=== PATIENT | female | born 1970 | race Caucasian/White ===

== ENCOUNTER 2016-11-29 17:47 | Emergency (ER) | payer MEDICAID ==
[2016-07-21 10:28] VITALS: BMI 36.7
[~2016-11-29 17:47] MED LIST: ACYCLOVIR15 GM TOPICAL; BENZONATATE200 MG PO; BUPRENORPHIN-N1 EACH SL; DOXYCYCLINE HY100 M2 PO; FAMVIR500 MG PO; FLORAJEN3 CAPS460 MG PO; IPRAT-ALBUT 0.5-3 ML INH; LEVAQUIN750 MG PO; MUCINEX DM ER1 EAC1 PO; NICODERM C1 PATCH .2 TRANSDERM; PREDNISONE20 MG PO; SINGULAIR10 MG PO; TESSALON PERLE100 MG PO
== END 2016-11-29 19:20 | disposition left against medical advice (07) ==
LOC: D.ER 17:47
DX: K13.79 Other lesions of oral mucosa (principal)

== ENCOUNTER 2016-12-02 16:41 | Emergency (ER) | payer MEDICAID ==
[2016-07-21 10:28] VITALS: BMI 36.7
== END 2016-12-02 19:00 | disposition home or self-care (01) ==
LOC: D.ER 16:41
DX: B00.1 Herpesviral vesicular dermatitis (principal); F17.200 Nicotine dependence, unspecified, uncomplicated; I10 Essential (primary) hypertension

== ENCOUNTER 2017-11-21 16:17 | Emergency (ER) | payer MEDICAID ==
[2016-07-21 10:28] VITALS: BMI 36.7
== END 2017-11-21 19:00 | disposition home or self-care (01) ==
LOC: D.ER 16:17
DX: F19.939 Other psychoactive substance use, unspecified with withdrawal, unspecified (principal); F41.9 Anxiety disorder, unspecified; I10 Essential (primary) hypertension

== ENCOUNTER 2019-08-20 18:08 | Emergency (ER) | payer MEDICAID ==
[~2019-08-20] VITALS: Ht 175.3 cm; Wt 102.3 kg
[2019-08-20 18:13] VITALS: Ht 175.3 cm; Wt 102.3 kg
[2019-08-20 18:51] LABS: BASOPHILS 0.1 % (0-2); EOSINOPHILS 0.3 % (0-7); HEMATOCRIT 35.4 % (36.0-48.0); HEMOGLOBIN 11.1 g/dL (12-16); IMMATURE GRANULOCYTES 0.2 % (0-5); LYMPHOCYTES 16.3 % (15-50); MCH 31.6 pg (26.0-34.0); MCHC 31.4 g/dL (31.0-37.0); MCV 100.9 fL (80.0-100.0); MEAN PLATELET VOLUME 9.9 fL (7.4-10.4); NEUTROPHILS 78.1 % (40-80); RBC 3.51 10x6/uL (4.00-5.40); RDW 12.7 % (11.5-14.5); WBC 12.2 10x3/uL (4.8-10.8)
[2019-08-20 18:55] LABS: PLATELET COUNT 204 10x3/uL (130-400)
[2019-08-20 19:11] LABS: ALBUMIN 3.5 g/dL (3.4-5.0); ALKALINE PHOSPHATASE 88 U/L (46-116); ALT (SGPT) 23 U/L (10-68); BILIRUBIN - TOTAL 0.45 mg/dL (0.2-1.3); CALC OSMOLALITY 277 mosm/kg (275-300); CALCIUM 8.7 mg/dL (8.5-10.1); CHLORIDE - SERUM 103 mmol/L (98-107); CREATININE - SERUM 0.8 mg/dL (0.6-1.3); GLUCOSE 96 mg/dL (74-106); POTASSIUM - SERUM 3.9 mmol/L (3.5-5.1); PROTEIN - SERUM 7.2 g/dL (6.4-8.2); SODIUM 138 mmol/L (136-145); UREA NITROGEN 17 mg/dL (7-18); eGFR NON AFRICAN AMERICAN 81 mL/min (90-120)
[2019-08-20 19:16] LABS: TROPONIN-I < 0.017 ng/mL (0.000-0.060)
[2019-08-20] MEDS ORDERED: VIBRAMYCIN 100100 MG PO (20:19)
[2019-08-20] MEDS ORDERED: PROMETHAZINE W473 ML PO (20:19)
[2019-08-20] MEDS ORDERED: ALBUTEROL SULF8.5 GM INH (20:19)
[2019-08-20 20:48] VITALS: BP 149/82
== END 2019-08-20 20:48 | disposition home or self-care (01) ==
LOC: D.ER 18:08
PROVIDERS: Emergency Medicine
DX: J18.9 Pneumonia, unspecified organism (principal); F17.210 Nicotine dependence, cigarettes, uncomplicated; I10 Essential (primary) hypertension

== ENCOUNTER 2019-11-13 17:12 | Emergency (ER) | payer MEDICAID ==
[~2019-11-13] VITALS: Ht 175.3 cm; Wt 97.7 kg
[~2019-11-13 17:12] MED LIST changes: +ALBUTEROL SULF8.5 GM INH; +PROMETHAZINE W473 ML PO; +VIBRAMYCIN 100100 MG PO
[2019-11-13 17:16] VITALS: Ht 175.3 cm; Wt 97.7 kg
[2019-11-13] MEDS ORDERED: ALBUTEROL SULF8.5 GM INH (19:57)
[2019-11-13] MEDS ORDERED: PROMETH-CODEIN 65 ML PO (19:57)
[2019-11-13] MEDS ORDERED: LEVAQUIN750 MG PO (19:57)
[2019-11-13 21:09] VITALS: BP 140/72
== END 2019-11-13 21:12 | disposition home or self-care (01) ==
LOC: D.ER 17:12
DX: J18.9 Pneumonia, unspecified organism (principal); J06.9 Acute upper respiratory infection, unspecified; R05 Cough; R09.81 Nasal congestion; Z72.0 Tobacco use

== ENCOUNTER 2020-02-10 16:25 | Inpatient (IN) | payer MEDICAID ==
[~2020-02-10] VITALS: Ht 175.3 cm; Wt 97.7 kg
[~2020-02-10 16:25] MED LIST changes: +PROMETH-CODEIN 65 ML PO
[2020-02-10 16:35] VITALS: Ht 175.3 cm; Wt 97.7 kg
[2020-02-10 17:02] VITALS: BP 158/94
[2020-02-10 18:05] VITALS: BP 129/76
[2020-02-10 18:05] LABS: HEMATOCRIT 39.1 % (36.0-48.0); HEMOGLOBIN 12.4 g/dL (12-16); LYMPHOCYTES 12.9 % (15-50); MCH 30.1 pg (26.0-34.0); MCHC 31.7 g/dL (31.0-37.0); MCV 94.9 fL (80.0-100.0); MEAN PLATELET VOLUME 9.5 fL (7.4-10.4); NEUTROPHILS 81.1 % (40-80); PLATELET COUNT 200 10x3/uL (130-400); RBC 4.12 10x6/uL (4.00-5.40); RDW 13.2 % (11.5-14.5); WBC 9.8 10x3/uL (4.8-10.8)
[2020-02-10 18:19] LABS: CALC OSMOLALITY 276 mosm/kg (275-300); CARBON DIOXIDE 27.3 mmol/L (21.0-32.0); CHLORIDE - SERUM 101 mmol/L (98-107); CREATININE - SERUM 0.6 mg/dL (0.6-1.3); GLUCOSE 95 mg/dL (74-106); POTASSIUM - SERUM 4.1 mmol/L (3.5-5.1); SODIUM 138 mmol/L (136-145); UREA NITROGEN 15 mg/dL (7-18); eGFR NON AFRICAN AMERICAN > 90 mL/min (90-120)
[2020-02-10 18:46] LABS: ALBUMIN 3.4 g/dL (3.4-5.0); ALKALINE PHOSPHATASE 82 U/L (30-120); ALT (SGPT) 19 U/L (10-68); BILIRUBIN - TOTAL 0.51 mg/dL (0.2-1.3); CKMB 0.5 U/L (0.0-3.6); CREATINE KINASE 63 UL (21-215); PROTEIN - SERUM 7.7 g/dL (6.4-8.2)
[2020-02-10 18:49] LABS: TROPONIN-I < 0.017 ng/mL (0.000-0.060)
[2020-02-10 19:17] LABS: ANION GAP 13.4 mmol/L (8-16); CARBON DIOXIDE 26.7 mmol/L (21.0-32.0); POTASSIUM - SERUM 4.1 mmol/L (3.5-5.1)
--- NOTE | 2020-02-10 20:30 | NUR ---
PT FROM ER VIA STRETCHER, PT AAO X 3, RESP EVEN AND UNLBAORED. NO DISTRESS NOTED, PT AMBULATED TO BED, SR UP X 2, CL IN REACH.
[2020-02-10 20:46] VITALS: BP 132/72
[2020-02-10 23:29] VITALS: BP 130/72
[2020-02-11 00:35] LABS: BILIRUBIN NEGATIVE (NEGATIVE); GLUCOSE NEGATIVE (NEGATIVE); KETONE NEGATIVE (NEGATIVE); NITRITE NEGATIVE (NEGATIVE); UROBILINOGEN NORMAL (NORMAL)
[2020-02-11 00:37] LABS: BACTERIA MODERATE /hpf (NEGATIVE); EPITHELIAL CELLS 0-5 /hpf (0-5); RED CELLS - URINE 0-5 /hpf (0-5); WHITE CELLS - URINE 0-5 /hpf (NEGATIVE)
--- NOTE | 2020-02-11 04:49 | NUR ---
I have reviewed this patient and I concur with the Shift Assessment completed by the Licensed Practical Nurse today this shift.
[2020-02-11 06:08] LABS: ALBUMIN 3.1 g/dL (3.4-5.0); ALKALINE PHOSPHATASE 74 U/L (30-120); ALT (SGPT) 20 U/L (10-68); BILIRUBIN - TOTAL 0.37 mg/dL (0.2-1.3); CALC OSMOLALITY 279 mosm/kg (275-300); CALCIUM 8.5 mg/dL (8.5-10.1); CARBON DIOXIDE 26.7 mmol/L (21.0-32.0); CHLORIDE - SERUM 104 mmol/L (98-107); CREATININE - SERUM 0.5 mg/dL (0.6-1.3); GLUCOSE 95 mg/dL (74-106); MAGNESIUM - SERUM 2.3 mg/dL (1.8-2.4); PHOSPHOROUS 3.8 mg/dL (2.5-4.9); POTASSIUM - SERUM 3.7 mmol/L (3.5-5.1); PROTEIN - SERUM 6.6 g/dL (6.4-8.2); SODIUM 140 mmol/L (136-145); UREA NITROGEN 14 mg/dL (7-18); eGFR NON AFRICAN AMERICAN > 90 mL/min (90-120)
[2020-02-11 06:35] LABS: HEMATOCRIT 35.8 % (36.0-48.0); HEMOGLOBIN 11.5 g/dL (12-16); LYMPHOCYTES 27.1 % (15-50); MCH 30.8 pg (26.0-34.0); MCHC 32.1 g/dL (31.0-37.0); MEAN PLATELET VOLUME 10.3 fL (7.4-10.4); NEUTROPHILS 66.3 % (40-80); PLATELET COUNT 178 10x3/uL (130-400); RBC 3.73 10x6/uL (4.00-5.40)
[2020-02-11 06:41] LABS: WBC 6.3 10x3/uL (4.8-10.8)
[2020-02-11 09:47] VITALS: BP 141/79
--- NOTE | 2020-02-11 16:43 | MORECARE ---
CASE MANAGEMENT DISCHARGE SUMMARY PATIENT: CINTHYA MENG UNIT: [id number] ADM DATE: 02/10/20 AGE: 49 : 72 SEX: F ROOM/BED: D.2131 AUTHOR: JANICE,DOC PHYSICIAN: REFERRING PHYSICIAN: RADHA ELLER MD DATE OF SERVICE: 02/11/20 Discharge Plan Patient Name: CINTHYA MENG Facility: [facility]:[place] : 1970 Planned Disposition: Home Anticipated Discharge Date: Discharge Date: Expected LOS: Initial Reviewer: [email or web address] Initial Review Date: 02/11/2020 Generated: 02/11/20 5:43 pm Comments DCP- Discharge Planning Updated by [email or web address]: Mateus Braun on 02/11/20 3:[address] Patient Name: CINTHYA MENG Admission Status: ER Accout number: [id number] Admission Date: 02-10-2020 : 1970 Admission Diagnosis: Attending: RADHA ELLER Current LOS: 1 Anticipated DC Date: Planned Disposition: Home Primary Insurance: MEDICAID [place] Discharge Planning Comments: CM MET WITH PT VIA ROOM TELEPHONE DUE TO INFECTION CONTROL PROTOCOL TO DISCUSS DISCHARGE PLANNING AND NEEDS. PT REPORTS LIVING AT HOME INDEPENDENTLY WITH HER BROTHER AND DAUGHER IN LAW. PT HAS NO MEDICAL EQUIPMENT AND NO OUTSIDE SERVICES ASSISTING IN THE HOME. CM DISCUSSED AVAILABILITY OF HOME HEALTH, REHAB SERVICES AND MEDICAL EQUIPMENT. PT DENIES DISCHARGE NEEDS, REPORTS HER BROTHER WILL PICK HER UP FOR DISCHARGE HOME. CM TO FOLLOW AND ASSIST IF NEEDED. Head Setter: Mateus Braun DCPIA - Discharge Planning Initial Assessment Updated by [email or web address]: Mateus Braun on 02/11/20 4:38 pm * Is the patient Alert and Oriented? Yes * How many steps to enter\exit or inside your home? NONE * PCP [facility], CAN'T REMEMBER NAME, HAS NOT MADE FIRST VISIT TO ESTABLISH WITH THE DOCTOR YET * Pharm[facility] * Preadmission Environment Home with Family * ADLs Independent * Equipment None * Other Equipment NO MEDICAL EQUIPMENT PROVIDER PREFERENCE * List name and contact numbers for known caregivers / representatives who currently or will assist patient after discharge: LAI MENG, BROTHER, * Verbal permission to speak to the caregivers and representatives has been obtained from the patient. N/A * Community resources currently utilized None * Please name any agencies selected above. NONE * Additional services required to return to the preadmission environment? No * Can the patient safely return to the preadmission environment? Yes * Has this patient been hospitalized within the prior 30 days at any hospital? No Patient Name: CINTHYA MENG Page [id number] at 1643 All edits/amendments must be made on the electronic document DICTATION DATE: 02/11/201642 LOTUS NOTES ADMINISTRATOR: DEMETRIA 02/11/201642 RPT#: [id number] DC DATE: STATUS: ADM IN [facility] [address] [place] [address] END OF REPORT
[2020-02-11 19:08] VITALS: BP 135/73
--- NOTE | 2020-02-11 19:30 | NUR ---
PT IN BED, AAO X 3, RESP EVEN AND UNLABORED, NO DISTRESS NOTED, CL IN REACH, SR UP X 2.
[2020-02-12 04:49] LABS: BASOPHILS 0.2 % (0-2); EOSINOPHILS 1.7 % (0-7); HEMATOCRIT 36.1 % (36.0-48.0); HEMOGLOBIN 11.2 g/dL (12-16); LYMPHOCYTES 44.4 % (15-50); MCH 30.2 pg (26.0-34.0); MCV 97.3 fL (80.0-100.0); MEAN PLATELET VOLUME 9.8 fL (7.4-10.4); MONOCYTES 7.6 % (2-11); NEUTROPHILS 46.1 % (40-80); PLATELET COUNT 160 10x3/uL (130-400); RBC 3.71 10x6/uL (4.00-5.40); RDW 13.5 % (11.5-14.5)
[2020-02-12 05:02] LABS: WBC 4.1 10x3/uL (4.8-10.8)
[2020-02-12 05:17] LABS: CALCIUM 8.8 mg/dL (8.5-10.1); CARBON DIOXIDE 27.2 mmol/L (21.0-32.0); CHLORIDE - SERUM 107 mmol/L (98-107); GLUCOSE 95 mg/dL (74-106); MAGNESIUM - SERUM 2.2 mg/dL (1.8-2.4); POTASSIUM - SERUM 3.9 mmol/L (3.5-5.1); SODIUM 142 mmol/L (136-145)
[2020-02-12 05:18] LABS: CALC OSMOLALITY 284 mosm/kg (275-300); CREATININE - SERUM 0.7 mg/dL (0.6-1.3); PHOSPHOROUS 4.8 mg/dL (2.5-4.9); UREA NITROGEN 18 mg/dL (7-18); eGFR NON AFRICAN AMERICAN > 90 mL/min (90-120)
[2020-02-12 05:51] VITALS: BP 123/65
[2020-02-12] MEDS ORDERED: OMNICEF300 MG PO (12:12)
[2020-02-12] MEDS ORDERED: AZITHROMYCIN500 MG PO (12:12)
--- NOTE | 2020-02-16 09:14 | MORECARE ---
CASE MANAGEMENT DISCHARGE SUMMARY PATIENT: CINTHYA MENG UNIT: [id number] ADM DATE: 02/10/20 AGE: 49 : 72 SEX: F ROOM/BED: D.2131 AUTHOR: JANICE,DOC PHYSICIAN: REFERRING PHYSICIAN: RADHA ELLER MD DATE OF SERVICE: 02/16/20 Discharge Plan Patient Name: CINTHYA MENG Facility: [facility]:[place] : 1970 Planned Disposition: Home Anticipated Discharge Date: 02/12/20 Discharge Date: 02/12/2020 Expected LOS: 2 Initial Reviewer: [email or web address] Initial Review Date: 02/11/2020 Generated: 02/16/20 10:14 am Comments DCP- Discharge Planning Updated by [email or web address]: Mateus Braun on 02/11/20 3:[address] Patient Name: CINTHYA MENG Admission Status: ER Accout number: [id number] Admission Date: 02-10-2020 : 1970 Admission Diagnosis: Attending: RADHA ELLER Current LOS: 1 Anticipated DC Date: Planned Disposition: Home Primary Insurance: [place]ICAID [place] Discharge Planning Comments: CM MET WITH PT VIA ROOM TELEPHONE DUE TO INFECTION CONTROL PROTOCOL TO DISCUSS DISCHARGE PLANNING AND NEEDS. PT REPORTS LIVING AT HOME INDEPENDENTLY WITH HER BROTHER AND DAUGHER IN LAW. PT HAS NO MEDICAL EQUIPMENT AND NO OUTSIDE SERVICES ASSISTING IN THE HOME. CM DISCUSSED AVAILABILITY OF HOME HEALTH, REHAB SERVICES AND MEDICAL EQUIPMENT. PT DENIES DISCHARGE NEEDS, REPORTS HER BROTHER WILL PICK HER UP FOR DISCHARGE HOME. CM TO FOLLOW AND ASSIST IF NEEDED. Disc Jockey: Mateus Braun DCPIA - Discharge Planning Initial Assessment Updated by [email or web address]: Mateus Braun on 02/11/20 4:38 pm * Is the patient Alert and Oriented? Yes * How many steps to enter\exit or inside your home? NONE * PCP [facility], CAN'T REMEMBER NAME, HAS NOT MADE FIRST VISIT TO ESTABLISH WITH THE DOCTOR YET * Pharmacy [facility] * Preadmission Environment Home with Family * ADLs Independent * Equipment None * Other Equipment NO MEDICAL EQUIPMENT PROVIDER PREFERENCE * List name and contact numbers for known caregivers / representatives who currently or will assist patient after discharge: LAI MENG, BROTHER, * Verbal permission to speak to the caregivers and representatives has been obtained from the patient. N/A * Community resources currently utilized None * Please name any agencies selected above. NONE * Additional services required to return to the preadmission environment? No * Can the patient safely return to the preadmission environment? Yes * Has this patient been hospitalized within the prior 30 days at any hospital? No Last DP export: 02/11/20 3:43 p Patient Name: CINTHYA MENG Page 45642 at 0914 All edits/amendments must be made on the electronic document DICTATION DATE: 02/16/20913 SALES ATTENDANT: DEMETRIA 02/16/20913 RPT#: [id number] DC DATE:02/12/20 STATUS: DIS IN [facility] [address] [place] [address] END OF REPORT
== END 2020-02-12 14:56 | disposition home or self-care (01) | DRG 194 ==
LOC: D.ER 16:25 → D.M2 18:52
PROVIDERS: Family Medicine; ADMIT Internal Medicine Nephrology; ATTEND Internal Medicine Nephrology
DX: J18.9 Pneumonia, unspecified organism (principal); R04.2 Hemoptysis; F17.213 Nicotine dependence, cigarettes, with withdrawal; N17.9 Acute kidney failure, unspecified; I10 Essential (primary) hypertension; G89.29 Other chronic pain; D64.9 Anemia, unspecified; Z20.818 Contact with and (suspected) exposure to other bacterial communicable diseases

== ENCOUNTER 2021-01-30 10:34 | Emergency (ER) | payer OTHER ==
[~2021-01-30] VITALS: Ht 175.3 cm; Wt 95.5 kg
[~2021-01-30 10:34] MED LIST changes: +AZITHROMYCIN500 MG PO; +CLINDAMYCIN HC300 MG PO; +KEFLEX500 MG PO; +OMNICEF300 MG PO; +VALTREX1000 MG PO
[2021-01-30 10:43] VITALS: BP 158/89; Ht 175.3 cm; Wt 95.5 kg
[2021-01-30] MEDS ORDERED: CYCLOBENZAPRINE10 MG PO (11:14)
[2021-01-30] MEDS ORDERED: IBUPROFEN800 MG PO (11:14)
[2021-01-30] MEDS ORDERED: ACETAMINOPHEN500 M1 PO (11:14)
== END 2021-01-30 11:29 | disposition home or self-care (01) ==
LOC: D.ER 10:34
DX: T14.8XXA Other injury of unspecified body region, initial encounter (principal); S81.811A Laceration without foreign body, right lower leg, initial encounter; W20.8XXA Other cause of strike by thrown, projected or falling object, initial encounter; Y93.9 Activity, unspecified; Y92.9 Unspecified place or not applicable

== ENCOUNTER 2021-02-04 09:06 | Inpatient (IN) | payer OTHER ==
[~2021-02-04] VITALS: Ht 175.3 cm; Wt 106.6 kg
[2021-02-04] VITALS (8 sets, daily range): BP systolic 84–129; BP diastolic 52–87; Ht 175.3 cm; Wt 106.6 kg
[~2021-02-04 09:06] MED LIST changes: +ACETAMINOPHEN500 M1 PO; +CYCLOBENZAPRINE10 MG PO; +IBUPROFEN800 MG PO
--- NOTE | 2021-02-04 10:36 | NUR ---
PATIENT CAME IN EMERGENT DIRECTLY FROM ER ON STRETCHER. PATIENT AWAKE ALERT AND RESPONSIVE UPON ARRIVAL TO OR VERBALIZED PAIN IN RIGHT LEG. OPEN WOUND PRESENT ON RIGHT LOWER LEG BELOW SITE OF HEMORRHAGE. RIGHT GREATER TOE WOUND PRESENT AT CORNER OF TOENAIL. TOURNIQUET ALREADY PRESENT PLACED IN AMBULANCE. EMERGENCY PROTOCAL FOLLOWED FOR DISTRUBUTION OF BLOOD PRODUCTS. PATIENT CAME IN FULLY CLOTHED BLACK PANTS SHIRT BRA ONE SHOE AND A BELT. CLOTHES CUT OFF PRIOR TO PROCEDURE. DENTURES WERE REMOVED AND PLACED IN CUP PRIOR TO INTUBATION LEFT WITH PATIENT ON BED AFTER END OF PROCEDURE. LEFT RING FINGER RING PRESENT.
--- NOTE | 2021-02-04 10:47 | NUR ---
NO PAPER CONSENT PRESENT PATIENT BROUGHT EMERGENTLY FROM ER DIRECTLY TO OR. SEE ED RECORD
[2021-02-04 11:31] LABS: BASOPHILS 0.2 % (0-2); HEMATOCRIT 31.6 % (36.0-48.0); HEMOGLOBIN 10.2 g/dL (12-16); IMMATURE GRANULOCYTES 0.3 % (0-5); LYMPHOCYTE ABS# 2.35 10x3/uL (1.18-3.74); LYMPHOCYTES 13.8 % (15-50); MCH 29.9 pg (26.0-34.0); MCHC 32.3 g/dL (31.0-37.0); MCV 92.7 fL (80.0-100.0); MEAN PLATELET VOLUME 9.5 fL (7.4-10.4); MONOCYTES 4.2 % (2-11); NEUTROPHIL ABS# 13.56 10x3/uL (1.56-6.13); NEUTROPHILS 79.5 % (40-80); PLATELET COUNT 331 10x3/uL (130-400); RBC 3.41 10x6/uL (4.00-5.40); RDW 12.7 % (11.5-14.5); WBC 17.1 10x3/uL (4.8-10.8)
[2021-02-04 13:41] LABS: CALC OSMOLALITY 279 mosm/kg (275-300); CARBON DIOXIDE 29.4 mmol/L (21.0-32.0); CHLORIDE - SERUM 105 mmol/L (98-107); CREATININE - SERUM 0.8 mg/dL (0.6-1.3); GLUCOSE 110 mg/dL (74-106); INR 1.12 (0.85-1.17); POTASSIUM - SERUM 4.2 mmol/L (3.5-5.1); PROTIME 13.4 SECONDS (11.6-15.0); SODIUM 138 mmol/L (136-145); UREA NITROGEN 22 mg/dL (7-18); eGFR NON AFRICAN AMERICAN 81 mL/min (90-120)
[2021-02-04 13:47] LABS: ALBUMIN 3.3 g/dL (3.4-5.0); ALKALINE PHOSPHATASE 95 U/L (30-120); ALT (SGPT) 24 U/L (10-68); BILIRUBIN - TOTAL 0.27 mg/dL (0.2-1.3)
[2021-02-04 21:28] LABS: HEMATOCRIT 26.1 % (36.0-48.0); HEMOGLOBIN 8.5 g/dL (12-16)
[2021-02-05] VITALS (20 sets, daily range): BP systolic 87–168; BP diastolic 45–92
[2021-02-05 04:10] LABS: BASOPHILS 0.3 % (0-2); EOSINOPHILS 3.7 % (0-7); HEMATOCRIT 24.1 % (36.0-48.0); HEMOGLOBIN 7.7 g/dL (12-16); IMMATURE GRANULOCYTES 0.1 % (0-5); LYMPHOCYTE ABS# 2.78 10x3/uL (1.18-3.74); MCH 29.5 pg (26.0-34.0); MCV 92.3 fL (80.0-100.0); MEAN PLATELET VOLUME 8.9 fL (7.4-10.4); MONOCYTES 5.2 % (2-11); NEUTROPHIL ABS# 4.43 10x3/uL (1.56-6.13); NEUTROPHILS 55.7 % (40-80); RDW 13.1 % (11.5-14.5)
[2021-02-05 04:22] LABS: PLATELET COUNT 203 10x3/uL (130-400); RBC 2.61 10x6/uL (4.00-5.40); WBC 7.9 10x3/uL (4.8-10.8)
[2021-02-05 04:36] LABS: ALKALINE PHOSPHATASE 71 U/L (30-120); ALT (SGPT) 18 U/L (10-68); CALC OSMOLALITY 280 mosm/kg (275-300); CALCIUM 7.5 mg/dL (8.5-10.1); CARBON DIOXIDE 25.8 mmol/L (21.0-32.0); CHLORIDE - SERUM 108 mmol/L (98-107); CREATININE - SERUM 0.8 mg/dL (0.6-1.3); GLUCOSE 106 mg/dL (74-106); MAGNESIUM - SERUM 2.1 mg/dL (1.8-2.4); PHOSPHOROUS 3.4 mg/dL (2.5-4.9); POTASSIUM - SERUM 3.9 mmol/L (3.5-5.1); SODIUM 140 mmol/L (136-145); UREA NITROGEN 18 mg/dL (7-18); eGFR NON AFRICAN AMERICAN 81 mL/min (90-120)
[2021-02-05 04:42] LABS: ALBUMIN 2.4 g/dL (3.4-5.0); BILIRUBIN - TOTAL 0.06 mg/dL (0.2-1.3); PROTEIN - SERUM 5.1 g/dL (6.4-8.2); TROPONIN-I < 0.017 ng/mL (0.000-0.060)
--- NOTE | 2021-02-05 07:20 | NUR ---
REPORT RECIEVED. PLAN OF CARE ASSUMED. SEE FLOWSHEET FOR ASSESSMENT FINDINGS.
--- NOTE | 2021-02-05 07:46 | NUR ---
DR. IBANEZ AT BEDSIDE. WAS INFORMED OF H&H. STATED NO PRBC'S AT THIS TIME. ORDERS RECIEVED TO REPEAT H&H IF SYMPTOMS OCCUR.
--- NOTE | 2021-02-05 11:24 | NUR ---
IV TO LEFT UPPER ARM AND RIGHT FOREARM INFILTRATED. D/C WITH CATH TIP INTACT. ONE IV SITE REMAINING TO RIGHT UPPER ARM. PATENT. DRESSING CHANGED.
--- NOTE | 2021-02-05 19:45 | NUR ---
REC'D IN BED WITH DAUGHTER AT BEDSIDE. REPORT GIVEN TO M/S BY DAY SHIFT NURSE, AWAITING OK FOR PT TO COME TO FLOOR. ASSUMED CARE IN THE MEANTIME, GIVEN PM MEDS.
--- NOTE | 2021-02-05 22:30 | NUR ---
PICKED UP BY ESCAPE WHEEL TOOTH CUTTER FROM FLOOR AND TRANSPORTED VIA TO RM 2208 @ 7553
--- NOTE | 2021-02-06 00:10 | NUR ---
Assumed care of pt when she arrived on unit at 2200. Pt is A&OX4 and denies pain/discomfort. SUPERVISOR COFFEE hooked up per order and infusing appropriately. Surgical dressing to RLE is CDI. Pt lying in bed watching TV.
[2021-02-06 06:03] VITALS: BP 114/68
[2021-02-06 06:45] LABS: ALBUMIN 2.6 g/dL (3.4-5.0); ALKALINE PHOSPHATASE 73 U/L (30-120); ALT (SGPT) 18 U/L (10-68); BILIRUBIN - TOTAL 0.03 mg/dL (0.2-1.3); CALC OSMOLALITY 278 mosm/kg (275-300); CALCIUM 8.1 mg/dL (8.5-10.1); CARBON DIOXIDE 27.6 mmol/L (21.0-32.0); CHLORIDE - SERUM 109 mmol/L (98-107); GLUCOSE 105 mg/dL (74-106); MAGNESIUM - SERUM 2.1 mg/dL (1.8-2.4); PHOSPHOROUS 3.4 mg/dL (2.5-4.9); POTASSIUM - SERUM 4.3 mmol/L (3.5-5.1); PROTEIN - SERUM 5.5 g/dL (6.4-8.2); SODIUM 139 mmol/L (136-145); UREA NITROGEN 15 mg/dL (7-18)
[2021-02-06 06:54] LABS: CREATININE - SERUM 0.5 mg/dL (0.6-1.3); eGFR NON AFRICAN AMERICAN > 90 mL/min (90-120)
[2021-02-06 07:32] LABS: BASOPHILS 0.3 % (0-2); EOSINOPHILS 2.7 % (0-7); HEMATOCRIT 22.8 % (36.0-48.0); IMMATURE GRANULOCYTES 0.3 % (0-5); LYMPHOCYTE ABS# 1.43 10x3/uL (1.18-3.74); LYMPHOCYTES 21.5 % (15-50); MCH 29.6 pg (26.0-34.0); MCV 92.3 fL (80.0-100.0); MEAN PLATELET VOLUME 8.9 fL (7.4-10.4); NEUTROPHIL ABS# 4.61 10x3/uL (1.56-6.13); NEUTROPHILS 69.2 % (40-80); PLATELET COUNT 175 10x3/uL (130-400); RBC 2.47 10x6/uL (4.00-5.40); RDW 13.2 % (11.5-14.5); WBC 6.7 10x3/uL (4.8-10.8)
[2021-02-06 07:33] LABS: HEMOGLOBIN 7.3 g/dL (12-16)
--- NOTE | 2021-02-06 08:24 | NUR ---
PT RECEIVED AWAKE AND ALERT. DRESSING TO RLE CDI. DESK REPRESENTATIVE FOR PAIN MED. UP AD CHETNA TO BATHROOM.
[2021-02-06 08:26] VITALS: BP 120/70
[2021-02-06] MEDS ORDERED: NICODERM CQ1 EAC3 TRANSDERM (10:48)
--- NOTE | 2021-02-06 11:02 | NUR ---
UNIT PRBC STARTED.
[2021-02-06 11:55] VITALS: BP 125/65
--- NOTE | 2021-02-06 13:43 | OP ---
PATIENT NAME: CINTHYA BOBO MEDICAL RECORD: [id number] :72 LOCATION:[facility] ADMISSION DATE:02/04/21 SURGEON: BRAXTON SCHAEFER MD DATE OF OPERATION: 02/04/2021 PREOPERATIVE DIAGNOSIS: 1. Arterial hemorrhage, right lower extremity. 2. Hemorrhagic shock. 3. Acute blood loss anemia requiring transfusions. POSTOPERATIVE DIAGNOSES: 1. No arterial but instead venous bleeding from the right lower extremity. 2. Hemorrhagic shock. 3. Acute blood loss anemia requiring transfusions. PROCEDURE: Emergency control of hemorrhage, right lower extremity. SURGEON: Braxton Schaefer MD ELECTRONIC ENGINEERING TECHNICIAN: Jaziel Faith [facility]. COMPLICATIONS: None. The patient was seen in the Emergency Room. An arterial tourniquet had been placed. There was still bleeding from the right lower extremity. The patient has venous stasis disease, CEAP-6. There is an open wound on the right lateral ankle and foot. I was initially told that there had been some kind of injury to her leg above this. It is uncertain whether there was an injury or not. Anyhow, the bleeding was significant and she had lost about 2 liters of blood at the scene and here at the hospital. She was transported emergently to the operating room. The right lower extremity was sterilely prepped and draped. An arterial tourniquet was placed and the pressure was increased between 250 to 300 mmHg. There was still bleeding coming from the site; therefore, this was venous bleeding. While compressing proximal and distal to the area of bleeding, I tried to oversew the feeding vessels proximally and distal to this with some large 3-0 Vicryl. Instead, the skin just tore. An incision was accomplished proximal and distal in an axial orientation. I dissected down to some significantly sized veins, which were ligated with 3-0 Vicryl. About 5 of these had to be ligated. Once I had ligated all of these, I did not attempt to close the incision as the skin was very friable. The wound was packed with fibrillar. It was then wrapped with 4 x 4s and Coban. The patient was then extubated and conveyed to the intensive care unit. Recommended the patient undergo some type of vein procedure in the future as I do not believe that her wounds will heal without some type of a vein procedure. TRANSINT:[id number] Voice Confirmation ID: [id number] DOCUMENT ID: [id number] OPERATIVE REPORT [id number] CINTHYA BOBO, BRAXTON DOMÍNGUEZ at 1343 CC: [id number] DICTATION DATE: 02/05/211715 ALUMINUM POOL INSTALLER: 02/05/21 2307 ADM IN [facility] [address] [place] [address]
[2021-02-06 16:54] VITALS: BP 107/84
--- NOTE | 2021-02-06 17:40 | NUR ---
SECOND UNIT PRBC FINISHED INFUSING. IV OUT. WHEELED TO ER FOR RIDE HOME WITH DAUGHTER.
--- NOTE | 2021-02-06 19:27 | MORECARE ---
CASE MANAGEMENT DISCHARGE SUMMARY PATIENT: CINTHYA BOBO UNIT: [id number] ADM DATE: 02/04/21 AGE: 50 : 72 SEX: F ROOM/BED: D2206 AUTHOR: JANICE,DOC PHYSICIAN: REFERRING PHYSICIAN: RICHARD SCHAEFER MD DATE OF SERVICE: 02/06/21 Case Management Discharge Planning Summary DCP REVIEW SUMMARY ANTICIPATED D/C DATE: 02/06/2021 EXPECTED LOS : 2 CASE STATUS: DCP Initiated INITIAL REVIEW: 02/04/2021 INITIAL REVIEWER: Finn Jacinto FINAL DISCHARGE DISPOSITION: : FINAL REVIEWER: FINAL REVIEW DATE: DCP Focus Questions & Answers - Added on: QUESTION: ANSWER : PATIENT: CINTHYA BOBO ENCOUNTER: [id number] MEDICAL RECORD#: [id number] ADMISSION DATE: 02/04/2021 DISCHARGE DATE: 02/06/2021 ATTENDING MD: RICHARD BLACKMON : AGE: 50 MARITAL STATUS: S DC PLAN ID: [id number] FACILITY: [facility] PRINTED ON: 02/06/21 19:27 CT All edits/amendments must be made on the electronic document DICTATION DATE: 02/06/211926 REGIONAL COMMERCIAL SALES MANAGER: DEMETRIA 02/06/211926 RPT#: [id number] DC DATE:02/06/21 STATUS: DIS IN [facility] [address] [place] [address] END OF REPORT
--- NOTE | 2021-02-06 19:38 | MORECARE ---
CASE MANAGEMENT DISCHARGE SUMMARY PATIENT: CINTHYA BOBO UNIT: [id number] ADM DATE: 02/04/21 AGE: 50 : 72 SEX: F ROOM/BED: D.2206 AUTHOR: LAURA CAMACHO PHYSICIAN: REFERRING PHYSICIAN: RICHARD SCHAEFER MD DATE OF SERVICE: 02/06/21 Case Management Discharge Planning Summary COMMENTS ENTERED DATE: 02/06/21 19:30 CT COMMENT TYPE: Discharge Planning REVIEWER: Finn Jacinto NO NEEDS. CM met with patient to complete DC plan and to evaluate needs. Patient lives independently at home with family. At discharge, the patient plans to return home and feels this is a safe discharge. Patient stated that she uses [facility] pharmacy and her PCP is Dr. Hendrickson. Patient further stated that she is able to manage entry into her home via the use of a ramp. Patient stated that she has no needs and that every Sunday she receives wound care through [facility]. Patient denies the use of DME. CM discussed availability of home health, rehab services, and medical equipment. Patient declined HHS, SNF, IPR, and DME. Patient voiced no other needs at this time and is satisfied with DC plan. Transportation provider at discharge will be with her brother, Tre Meng ([phone]). CM will continue to follow and will assist as needed with dc plans/needs. DCP REVIEW SUMMARY ANTICIPATED D/C DATE: 02/06/2021 EXPECTED LOS : 2 CASE STATUS: DCP Initiated INITIAL REVIEW: 02/04/2021 INITIAL REVIEWER: Finn Jacinto FINAL DISCHARGE DISPOSITION: : FINAL REVIEWER: FINAL REVIEW DATE: DCP Focus Questions & Answers DCP REV -DCP Review Added on: 02/06/21 7:30 pm QUESTION: ANSWER DCP Evaluation Patient gives permission to discuss discharge plans with: (name, relationship and number) : TRE MENG, Brother, Physical Status: : Independent with ADL's Baseline cognitive status: : *Oriented to person, place, situation, time and present Patient's ability to cope with chronic illness : d. No chronic illness Living Arrangements: : Home with others Medication Management: : Patient states can afford medications Medication Management: : Patient states can read and understand medication labels Pharmacy name(s): : [facility] Does Patient have transportation to get home and to follow-up medical appointments when discharged from the hospital? : Yes Does the patient have electricity at home? : Yes Does the patient have running water in their house? : Yes Equipment in use: : None Mental health screen: : No mental health history Patient's current cognitive status: : *Oriented to person, place, situation, time and present Patient with capacity for self-care or can be cared for in same environment as prior to hospitalization? : Yes Does the patient have the ability to pay for or attain post discharge needs / services? : Yes Is there a likelihood that the patient will require additional services to return to the preadmission environment? : No Patient and/or caregiver agree upon recommended discharge plan? : Yes Equipment needed for post hospitalization: : None Physical environment modification needed / anticipated for discharge: : No Would patient like to participate in any Care Coordination programs (if applicable): : Not applicable DCP Re-evaluation Would patient like to participate in any Care Coordination programs (if applicable): : Not applicable PATIENT: CINTHYA BOBO ENCOUNTER: [id number] MEDICAL RECORD#: [id number] ADMISSION DATE: 02/04/2021 DISCHARGE DATE: 02/06/2021 ATTENDING MD: RICHARD BLACKMON : AGE: 50 MARITAL STATUS: S DC PLAN ID: [id number] FACILITY: [facility] PRINTED ON: 02/06/21 19:38 CT All edits/amendments must be made on the electronic document DICTATION DATE: 02/06/211937 RENT COLLECTOR: DEMETRIA 02/06/211937 RPT#: [id number] DC DATE:02/06/21 STATUS: DIS IN [facility] [address] [place] [address] END OF REPORT
--- NOTE | 2021-02-07 16:53 | MORECARE ---
CASE MANAGEMENT DISCHARGE SUMMARY PATIENT: CINTHYA BOBO UNIT: [id number] ADM DATE: 02/04/21 AGE: 50 : 72 SEX: F ROOM/BED: D.2206 AUTHOR: LAURA CAMACHO PHYSICIAN: REFERRING PHYSICIAN: RICHARD SCHAEFER MD DATE OF SERVICE: 02/07/21 Case Management Discharge Planning Summary COMMENTS ENTERED DATE: 02/06/21 19:30 CT COMMENT TYPE: Discharge Planning REVIEWER: Finn Jacinto NO NEEDS. CM met with patient to complete DC plan and to evaluate needs. Patient lives independently at home with family. At discharge, the patient plans to return home and feels this is a safe discharge. Patient stated that she uses [facility]'s pharmacy and her PCP is Dr. Hendrickson. Patient further stated that she is able to manage entry into her home via the use of a ramp. Patient stated that she has no needs and that every Sunday she receives wound care through [facility]. Patient denies the use of DME. CM discussed availability of home health, rehab services, and medical equipment. Patient declined HHS, SNF, IPR, and DME. Patient voiced no other needs at this time and is satisfied with DC plan. Transportation provider at discharge will be with her brother, Tre Meng ([phone]). CM will continue to follow and will assist as needed with dc plans/needs. DCP REVIEW SUMMARY ANTICIPATED D/C DATE: 02/06/2021 EXPECTED LOS : 2 CASE STATUS: DCP Initiated INITIAL REVIEW: 02/04/2021 INITIAL REVIEWER: Finn Jacinto FINAL DISCHARGE DISPOSITION: : FINAL REVIEWER: FINAL REVIEW DATE: DCP Focus Questions & Answers DCP REV -DCP Review Added on: 02/06/21 7:30 pm QUESTION: ANSWER DCP Evaluation Patient gives permission to discuss discharge plans with: (name, relationship and number) : TRE MENG, Brother, Physical Status: : Independent with ADL's Baseline cognitive status: : *Oriented to person, place, situation, time and present Patient's ability to cope with chronic illness : d. No chronic illness Living Arrangements: : Home with others Medication Management: : Patient states can afford medications Medication Management: : Patient states can read and understand medication labels Pharmacy name(s): : [facility] Does Patient have transportation to get home and to follow-up medical appointments when discharged from the hospital? : Yes Does the patient have electricity at home? : Yes Does the patient have running water in their house? : Yes Equipment in use: : None Mental health screen: : No mental health history Patient's current cognitive status: : *Oriented to person, place, situation, time and present Patient with capacity for self-care or can be cared for in same environment as prior to hospitalization? : Yes Does the patient have the ability to pay for or attain post discharge needs / services? : Yes Is there a likelihood that the patient will require additional services to return to the preadmission environment? : No Patient and/or caregiver agree upon recommended discharge plan? : Yes Equipment needed for post hospitalization: : None Physical environment modification needed / anticipated for discharge: : No Would patient like to participate in any Care Coordination programs (if applicable): : Not applicable DCP Re-evaluation Would patient like to participate in any Care Coordination programs (if applicable): : Not applicable PATIENT: CINTHYA BOBO ENCOUNTER: [id number] MEDICAL RECORD#: [id number] ADMISSION DATE: 02/04/2021 DISCHARGE DATE: 02/06/2021 ATTENDING MD: RICHARD BLACKMON : AGE: 50 MARITAL STATUS: S DC PLAN ID: [id number] FACILITY: [facility] PRINTED ON: 02/07/21 16:53 CT All edits/amendments must be made on the electronic document DICTATION DATE: 02/07/211652 LEARNING CENTER COORDINATOR: DEMETRIA 02/07/211652 RPT#: [id number] DC DATE:02/06/21 STATUS: DIS IN [facility] [address] [place] [address] END OF REPORT
== END 2021-02-06 17:41 | disposition home or self-care (01) | DRG 981 ==
LOC: D.ER 09:06 → D.ICU 11:05 → D.MS 02-05 21:58
PROVIDERS: Emergency Medicine; ADMIT Surgery; ATTEND Surgery
PROC: 06LY3ZZ Occlusion of Lower Vein, Percutaneous Approach (ICD-10-PCS; principal; 2021-02-04 09:20)
DX: S81.801A Unspecified open wound, right lower leg, initial encounter (principal); R57.8 Other shock; D62 Acute posthemorrhagic anemia; F11.20 Opioid dependence, uncomplicated; R58 Hemorrhage, not elsewhere classified; X58.XXXA Exposure to other specified factors, initial encounter; I10 Essential (primary) hypertension; J44.9 Chronic obstructive pulmonary disease, unspecified; G47.00 Insomnia, unspecified; G89.29 Other chronic pain

== ENCOUNTER → 2021-02-10 14:15 | Outpatient (CLI) | payer OTHER ==
[2021-02-04 12:16] VITALS: BMI 33.8
[~2021-02-10 14:15] MED LIST changes: +NICODERM CQ1 EAC3 TRANSDERM
[2021-02-11 11:50] LABS: HEMATOCRIT 37.2 % (36.0-48.0); LYMPHOCYTE ABS# 1.64 10x3/uL (1.18-3.74); MCHC 32.3 g/dL (31.0-37.0); MEAN PLATELET VOLUME 9.4 fL (7.4-10.4); NEUTROPHIL ABS# 4.71 10x3/uL (1.56-6.13); RDW 14.2 % (11.5-14.5); WBC 7.3 10x3/uL (4.8-10.8)
[2021-02-11 11:54] LABS: PLATELET COUNT 295 10x3/uL (130-400)
[2021-02-11 14:03] LABS: ANISOCYTOSIS OCC; EOSINOPHILS 7 % (0-7); HYPOCHROMASIA OCC; LYMPHOCYTES 18 % (15-50); MONOCYTES 9 % (2-11); NEUTROPHILS 65 % (40-80); PLATELET ESTIMATE NORMAL; ROULEAUX OCC
== END | disposition home or self-care (01) ==
LOC: D.LAB 14:15
PROVIDERS: ATTEND Surgery
DX: Z48.01 Encounter for change or removal of surgical wound dressing (principal)